=== PATIENT | female | born 1985 | race Caucasian/White ===

== ENCOUNTER 2022-03-17 02:25 | Emergency (ER) | payer MEDICAID ==
[~2022-03-17] VITALS: Ht 149.9 cm; Wt 59.0 kg
[~2022-03-17 02:25] MED LIST: ALBU0.0912 IH
[2022-03-17 02:32] VITALS: BP 133/79
--- NOTE | 2022-03-17 03:01 | NUR ---
Patient to bed 12.
--- NOTE | 2022-03-17 03:02 | NUR ---
Patient A/Ox4, resting in bed, chest rise and fall symmetrical, no c/o pain or s/s of distress, on monitor.
--- NOTE | 2022-03-17 04:30 | NUR ---
ER physician assessing patient.
--- NOTE | 2022-03-17 04:54 | NUR ---
Patient A/Ox4, resting in bed, chest rise and fall symmetrical, no c/o pain or s/s of distress, on monitor.
--- NOTE | 2022-03-17 04:55 | NUR ---
Patient states that she will "try to urinate in bed cabello."
--- NOTE | 2022-03-17 05:11 | NUR ---
Patient states that she "can not urinate on a bed cabello and needs to use the bathroom." automotive refinish technician Lima taking patient to restroom via wheelchair.
[2022-03-17 05:59] LABS: APPEARANCE,URINE CLEAR (CLEAR); BILIRUBIN,URINE NEGATIVE (NEGATIVE); BLOOD, URINE TRACE-I (NEGATIVE); COLOR,URINE YELLOW (YELLOW); LEUKOCYTE ESTERASE ,URINE TRACE (NEGATIVE); NITRITE, URINE POSITIVE (NEGATIVE); UGLUCOSE NEGATIVE (NEGATIVE)
[2022-03-17 06:13] LABS: BARBITURATE, URINE NEGATIVE ng/ml (NEG <=200)
[2022-03-17 06:14] LABS: BENZODIAZEPINE, URINE NEGATIVE ng/mL (NEG <=200); CANNABINOID, URINE NEGATIVE ng/mL (NEG <=50); COCAINE, URINE NEGATIVE ng/mL (NEG <=300); OPIATE, URINE NEGATIVE ng/mL (NEG <=2000); PHENCYCLIDINE SCREEN,URINE NEGATIVE ng/mL (NEG <=25)
[2022-03-17 06:15] LABS: RBC,URINE 0-5 /HPF (0-5); WBC,URINE 20-60 /HPF (0-5)
[2022-03-17 07:18] VITALS: BP 113/84
[2022-03-20] MEDS ORDERED: CEPH-588 PO (17:58)
--- NOTE | 2022-03-21 12:52 | NUR ---
LATE ENTRY. URINE CULTURE RESULT, FORM GIVEN TO DR MARTINEZ ON 03/20/22. FORM STATED THAT DR MARTINEZ ATTEMPTED TO CONTACT PT MULTIPLE TIMES WITH NO ANSWER. RX OF KEFLEX SENT TO [facility] BY DR MARTINEZ. FORM PLACED IN BINDER.
== END 2022-03-17 07:00 | disposition home or self-care (01) ==
LOC: MED 02:25
DX: R14.0 Abdominal distension (gaseous) (principal); F15.10 Other stimulant abuse, uncomplicated; J45.909 Unspecified asthma, uncomplicated; F17.200 Nicotine dependence, unspecified, uncomplicated; Z71.6 Tobacco abuse counseling
CPT/HCPCS: 80305; 81001; 81025; 87086; 99283